=== PATIENT | male | born 1965 | race Caucasian/White ===

== ENCOUNTER 2017-06-05 07:50 | Inpatient (IN) | payer OTHER ==
[2017-05-26 14:20] LABS: BASOPHILS % (AUTO) 0.2 % (0-1); EOSINOPHILS # (AUTO) 0.2 X10'3 (0-0.9); LYMPHOCYTES # (AUTO) 1.1 X10'3 (1.1-4.8); LYMPHOCYTES % (AUTO) 15.8 % (21-51); MEAN CORPUSCULAR HEMOGLOBIN 31.3 PG (27.0-31.0); MEAN CORPUSCULAR HGB CONC 34.4 % (33.0-36.5); MEAN CORPUSCULAR VOLUME 90.9 FL (78-98); MEAN PLATELET VOLUME 8.8 FL (7.4-10.4); MONOCYTES % (AUTO) 14.1 % (2-12); NEUTROPHILS # (AUTO) 4.7 X10'3 (1.8-7.7); NEUTROPHILS % (AUTO) 66.9 % (42-75); PRE OP HEMATOCRIT 45.4 % (42.0-52.0); PRE OP HEMOGLOBIN 15.6 g/dL (14.0-17.9); PRE OP PLATELET COUNT 233 X10'3 (140-440); RED BLOOD COUNT 4.99 X10'6 (4.70-6.10); RED CELL DISTRIBUTION WIDTH 12.9 % (11.5-14.5)
[2017-05-26 14:30] LABS: PRE OP PROTIME 10.4 SECONDS (9.0-12.0)
[2017-05-26 14:36] LABS: ALBUMIN 3.5 G/DL (3.4-5.0); ALBUMIN/GLOBULIN RATIO 0.7 (1.1-1.5); ALKALINE PHOSPHATASE 41 IU/L (46-116); BLOOD UREA NITROGEN 18 MG/DL (7-18); BUN/CREATININE RATIO 16.7 (5.4-32.0); CALCIUM 9.1 MG/DL (8.5-10.1); CHLORIDE 103 MMOL/L (99-107); CREATININE 1.08 MG/DL (0.60-1.10); PRE OP ALT 69 U/L (30-65); PRE OP ANION GAP 10 (8-16); PRE OP AST 43 U/L (10-37); PRE OP BILIRUB, TOTAL 0.4 MG/DL (0.0-1.0); PRE OP GLUCOSE 112 MG/DL (70-104); PRE OP SODIUM 140 MMOL/L (135-145); TOTAL CARBON DIOXIDE 26.9 MMOL/L (24-32); TOTAL PROTEIN 8.4 G/DL (6.4-8.2); eGFR 72 ML/MIN
[2017-05-26 14:38] LABS: PRE OP POTASSIUM 3.3 MMOL/L (3.4-5.1)
[2017-06-05] VITALS (17 sets, daily range): BP systolic 97–152; BP diastolic 54–94
[~2017-06-05] VITALS: Ht 190.5 cm; Wt 125.1 kg
[~2017-06-05 07:50] MED LIST: DOCUMENT DATE & TIME OF BETA-BLOCKER PO ONE; HYDR-565 PO; LOSA50TA3 PO; METO-395 PO; PANT20TA2 PO; ceFAZolin 2gm in dextrose, iso 100 ML IV ONE; famotidine 20mg tablet PO ONE; ringers solution, lacted 1,000 ML IV SCH; vancomycin inj 1,500 MG in normal saline 300ml IV soln IV ONE
[2017-06-05] MEDS ORDERED: ringers solution, lacted 1,000 ML IV SCH (09:13)
[2017-06-05] MEDS ORDERED: morphine 4 MG/ML inj SYRINge IV PRN ×2 (09:15)
[2017-06-05] MEDS ORDERED: ondansetron/PF 4mg/2ml inj IV PRN ×2 (09:15→14:50)
[2017-06-05] MEDS ORDERED: meperidine/PF 50mg/ml syringe IV PRN ×3 (09:15)
[2017-06-05] MEDS ORDERED: proCHLORperazine 10 MG/2 ml inj IV PRN (09:15)
[2017-06-05] MEDS ORDERED: ROPIVAcaine 0.5% (5mg/ml) 30ml vial ONE (10:42)
[2017-06-05] MEDS ORDERED: ketorolac trometh. 30mg/ml inj. ONE (10:42)
[2017-06-05] MEDS ORDERED: vancomycin 1,000mg inj ONE (10:42)
[2017-06-05] MEDS ORDERED: fentaNYL/PF 50MCG/1 ML 2ML syringe ONE (11:19)
[2017-06-05] MEDS ORDERED: dexamethasone sod phosphate 4mg/ml inj. ONE (11:20)
[2017-06-05] MEDS ORDERED: MIDAZolam 5mg/5ml vial ONE (11:20)
[2017-06-05] MEDS ORDERED: sevoflurane 250ml liquid IH ONE (11:52)
[2017-06-05] MEDS ORDERED: glycopyrrolate 0.2mg/ml inj ONE (11:52)
[2017-06-05] MEDS ORDERED: neostigmine methylsulfate 1 MG/ML 10ml vial ONE (11:52)
[2017-06-05] MEDS ORDERED: rocuronium 10mg/ml inj IV ONE (12:39)
[2017-06-05] MEDS ORDERED: ondansetron/PF 4mg/2ml inj ONE (12:40)
[2017-06-05] MEDS ORDERED: acetaminophen 325mg tablet PO PRN (14:50)
[2017-06-05] MEDS ORDERED: oxyCODONE IR 5mg (immed. release) tablet PO PRN (14:50)
[2017-06-05] MEDS ORDERED: albuterol 2.5 MG/3 ML nebule NEB ONE (14:50)
[2017-06-05] MEDS ORDERED: diphenhydrAMINE 25mg capsule PO PRN ×2 (14:50)
[2017-06-05] MEDS ORDERED: magnesium hydroxide 30ml (MOM) UD suspension PO PRN (14:50)
[2017-06-05] MEDS ORDERED: HYDROmorphone inj. 0.5 MG/0.5 ML DISP.SYRIN IV PRN ×2 (14:50)
[2017-06-05] MEDS ORDERED: bisacodyl 10mg suppository rectal RC PRN (14:50)
[2017-06-05] MEDS ORDERED: albuterol 2.5 MG/3 ML nebule ONE (15:00)
[2017-06-05] MEDS ORDERED: albuterol 2.5 MG/3 ML nebule NEB PRN ×2 (15:15→17:00)
[2017-06-05] MEDS: tranexamic acid inj. 1,250 MG in normal saline 100ml IV soln 100 ML IV SCH ×2 (15:52→16:17)
[2017-06-05] MEDS: clindamycin 600mg/D5W 50ml 50 ML IV SCH ×2 (16:10→20:24)
[2017-06-05] MEDS: oxyCODONE IR 5mg (immed. release) tablet PO PRN ×2 (16:11→20:26)
[2017-06-05] MEDS: potassium cl 20mEq in 1/2 NS 1,000 ML IV SCH ×2 (16:17→20:30)
[2017-06-05] MEDS ORDERED: ketorolac trometh. 30mg/ml inj. IV ONE (18:00)
[2017-06-05] MEDS ORDERED: acetaminophen 1,000mg/100ml IV 100 ML IV ONE (18:00)
[2017-06-05] MEDS ORDERED: tranexamic acid inj. 1,250 MG in normal saline 100ml IV soln 100 ML IV ONE (18:00)
[2017-06-05] MEDS: ketorolac tromethamine 15mg/ml inj. IV SCH ×2 (20:00→20:25)
[2017-06-05] MEDS ORDERED: vancomycin/NS 1 GM ADD-VANTAGE 250 ML IV SCH (20:00)
[2017-06-05] MEDS ORDERED: celeCOXIB 100mg capsule PO SCH (20:00)
[2017-06-05] MEDS: gabapentin 300mg capsule PO SCH (20:25)
[2017-06-05] MEDS: acetaminophen 325mg tablet PO SCH (20:28)
[2017-06-05] MEDS ORDERED: sennosides 8.6mg tablet PO SCH (21:00)
[2017-06-06] MEDS: oxyCODONE IR 5mg (immed. release) tablet PO PRN ×3 (00:53→09:49)
[2017-06-06] MEDS: clindamycin 600mg/D5W 50ml 50 ML IV SCH ×2 (01:55→08:47)
[2017-06-06] MEDS: acetaminophen 325mg tablet PO SCH ×2 (01:56→08:49)
[2017-06-06] MEDS: ketorolac tromethamine 15mg/ml inj. IV SCH ×2 (01:56→08:44)
[2017-06-06 02:00] VITALS: BP 107/71
[2017-06-06 06:17] LABS: BASOPHILS % (AUTO) 0 % (0-1); EOSINOPHILS # (AUTO) 0.3 X10'3 (0-0.9); HEMATOCRIT 37.7 % (42.0-52.0); HEMOGLOBIN 13.3 g/dl (14.0-17.9); LYMPHOCYTES # (AUTO) 1.1 X10'3 (1.1-4.8); LYMPHOCYTES % (AUTO) 7.2 % (21-51); MEAN CORPUSCULAR HEMOGLOBIN 34.2 PG (27.0-31.0); MEAN CORPUSCULAR HGB CONC 35.3 % (33.0-36.5); MEAN CORPUSCULAR VOLUME 96.9 FL (78-98); MEAN PLATELET VOLUME 8.9 FL (7.4-10.4); MONOCYTES # (AUTO) 0.6 X10'3 (0-0.9); NEUTROPHILS # (AUTO) 13.6 X10'3 (1.8-7.7); NEUTROPHILS % (AUTO) 86.8 % (42-75); PLATELET COUNT 297 X10'3 (140-440); RED BLOOD COUNT 3.89 X10'6 (4.70-6.10); RED CELL DISTRIBUTION WIDTH 12.8 % (11.5-14.5); WHITE BLOOD COUNT 15.6 X10'3 (4.5-11.0)
[2017-06-06 06:38] LABS: ANION GAP 11 (8-16); CHLORIDE 102 MMOL/L (99-107); POTASSIUM 4.4 MMOL/L (3.5-5.1); SODIUM 138 MMOL/L (135-145); TOTAL CARBON DIOXIDE 24.6 MMOL/L (24-32)
[2017-06-06 07:00] VITALS: BP 134/72
[2017-06-06] MEDS ORDERED: metoprolol succinate 25mg (24-HOUR) SR. Tablet PO SCH (08:00)
[2017-06-06] MEDS ORDERED: pantoprazole 40mg Tablet.DR PO SCH (08:00)
[2017-06-06] MEDS ORDERED: losartan 50mg tablet PO SCH (08:00)
[2017-06-06] MEDS ORDERED: aspirin 325mg tablet PO SCH (08:30)
[2017-06-06] MEDS: potassium cl 20mEq in 1/2 NS 1,000 ML IV SCH (08:43)
[2017-06-06] MEDS: gabapentin 300mg capsule PO SCH (08:44)
[2017-06-06 08:56] VITALS: BP 126/74
[2017-06-06 10:00] VITALS: BP 122/69
[2017-06-06] MEDS ORDERED: OXYC-145 PO (12:10)
[2017-06-06] MEDS ORDERED: lactobacillus rhamnosus 10,000 MMU CELLS/CAPSULE PO SCH (20:00)
[2017-06-07] MEDS ORDERED: acetaminophen 325mg tablet PO PRN (14:50)
== END 2017-06-06 13:30 | disposition home or self-care (01) | DRG 483 ==
LOC: PAS IN 07:50 → EDSTATUS 11:00 → ORTHO 4S 16:02
PROVIDERS: ADMIT Orthopaedic Surgery; ATTEND Orthopaedic Surgery
PROC: 0LS30ZZ Reposition Right Upper Arm Tendon, Open Approach (ICD-10-PCS; 2017-06-05)
PROC: 3E0T3BZ Introduction of Anesthetic Agent into Peripheral Nerves and Plexi, Percutaneous Approach (ICD-10-PCS; 2017-06-05)
PROC: 0RRJ00Z Replacement of Right Shoulder Joint with Reverse Ball and Socket Synthetic Substitute, Open Approach (ICD-10-PCS; principal; 2017-06-05 11:52)
DX: M19.111 Post-traumatic osteoarthritis, right shoulder (principal); D50.0 Iron deficiency anemia secondary to blood loss (chronic); I10 Essential (primary) hypertension; M75.121 Complete rotator cuff tear or rupture of right shoulder, not specified as traumatic; K21.9 Gastro-esophageal reflux disease without esophagitis; M65.811 Other synovitis and tenosynovitis, right shoulder; Z79.899 Other long term (current) drug therapy
CPT/HCPCS: 36415; 80051; 80053; 85025; 85610; 85730; 87070; 94640; 97110; 97116; 97162; 97530; A4565; A7000; J0690; J1100; J1170; J1885; J2250; J2405; J2710; J2795; J3010; J3370; J3490; J7030; J7120

== ENCOUNTER 2017-06-23 09:58 | Inpatient (IN) | payer OTHER ==
[2017-06-23] VITALS (17 sets, daily range): BP systolic 103–137; BP diastolic 64–89
[~2017-06-23] VITALS: Ht 190.5 cm; Wt 125.0 kg
[~2017-06-23 09:58] MED LIST changes: +Cefazolin 2GM/100ML NS IVPB 100 ML IV ONE; -DOCUMENT DATE & TIME OF BETA-BLOCKER PO ONE; -HYDR-565 PO; +OXYC-145 PO; -ceFAZolin 2gm in dextrose, iso 100 ML IV ONE; -famotidine 20mg tablet PO ONE; -ringers solution, lacted 1,000 ML IV SCH; -vancomycin inj 1,500 MG in normal saline 300ml IV soln IV ONE; +vancomycin/NS 1 GM ADD-VANTAGE 250 ML X 1 DOSE IV ONE
[2017-06-23] MEDS ORDERED: tranexamic acid inj. 1,250 MG in normal saline 100ml IV soln 87.5 ML IV ONE ×4 (10:30)
[2017-06-23 12:01] LABS: BASOPHILS % (AUTO) 0.5 % (0-1); EOSINOPHILS # (AUTO) 0.4 X10'3 (0-0.9); EOSINOPHILS % (AUTO) 4.6 % (0-6); HEMATOCRIT 41.6 % (42.0-52.0); HEMOGLOBIN 14.4 g/dl (14.0-17.9); LYMPHOCYTES # (AUTO) 2.2 X10'3 (1.1-4.8); MEAN CORPUSCULAR HEMOGLOBIN 31.5 PG (27.0-31.0); MEAN CORPUSCULAR HGB CONC 34.5 % (33.0-36.5); MEAN CORPUSCULAR VOLUME 91.5 FL (78-98); MEAN PLATELET VOLUME 9.1 FL (7.4-10.4); MONOCYTES # (AUTO) 0.6 X10'3 (0-0.9); MONOCYTES % (AUTO) 7.4 % (2-12); NEUTROPHILS # (AUTO) 5.3 X10'3 (1.8-7.7); NEUTROPHILS % (AUTO) 61.5 % (42-75); PLATELET COUNT 342 X10'3 (140-440); RED BLOOD COUNT 4.55 X10'6 (4.70-6.10); RED CELL DISTRIBUTION WIDTH 12.9 % (11.5-14.5); WHITE BLOOD COUNT 8.6 X10'3 (4.5-11.0)
[2017-06-23 12:13] LABS: ALANINE AMINOTRANSFERASE 37 U/L (12-78); ALBUMIN/GLOBULIN RATIO 0.6 (1.1-1.5); ALKALINE PHOSPHATASE 59 IU/L (46-116); ANION GAP 8 (8-16); ASPARTATE AMINO TRANSFERASE 24 U/L (10-37); BILIRUBIN,TOTAL 0.4 MG/DL (0.1-1.0); BLOOD UREA NITROGEN 17 MG/DL (7-18); BUN/CREATININE RATIO 16.8 (5.4-32.0); CHLORIDE 104 MMOL/L (99-107); CREATININE 1.01 MG/DL (0.60-1.10); GLUCOSE 96 MG/DL (70-104); POTASSIUM 4.1 MMOL/L (3.5-5.1); SODIUM 142 MMOL/L (135-145); TOTAL CARBON DIOXIDE 30.1 MMOL/L (24-32); TOTAL PROTEIN 7.7 G/DL (6.4-8.2); eGFR 78 ML/MIN
[2017-06-23] MEDS ORDERED: LIDOcaine 2% (20mg/ml) 5ml vial ONE (13:12)
[2017-06-23] MEDS ORDERED: ketorolac trometh. 30mg/ml inj. ONE (14:11)
[2017-06-23] MEDS ORDERED: ROPIVAcaine 0.5% (5mg/ml) 30ml vial ONE (14:11)
[2017-06-23] MEDS ORDERED: sevoflurane 250ml liquid IH ONE ×2 (14:28)
[2017-06-23] MEDS ORDERED: dexamethasone sod phosphate 4mg/ml inj. ONE (14:28)
[2017-06-23] MEDS ORDERED: midazolam 2 mg/2 ml injection ONE (14:33)
[2017-06-23] MEDS ORDERED: vancomycin 1,000mg inj ONE (14:39)
[2017-06-23] MEDS ORDERED: ondansetron/PF 4mg/2ml inj ONE (15:01)
[2017-06-23] MEDS ORDERED: fentaNYL /PF 50mcg/ml 5ml ampule ONE (15:01)
[2017-06-23] MEDS ORDERED: ringers solution, lacted 1,000 ML IV SCH (15:28)
[2017-06-23] MEDS ORDERED: ondansetron/PF 4mg/2ml inj IV PRN ×2 (15:30→16:40)
[2017-06-23] MEDS ORDERED: hydrALAZINE 20mg/ml inj. IV PRN (15:30)
[2017-06-23] MEDS ORDERED: enalaprilat dihydrate 2.5mg/2ml vial IV PRN (15:30)
[2017-06-23] MEDS ORDERED: morphine 4 MG/ML inj SYRINge IV PRN ×2 (15:30)
[2017-06-23] MEDS ORDERED: fentaNYL/PF 50MCG/1 ML 2ML syringe IV PRN ×2 (15:30)
[2017-06-23] MEDS ORDERED: magnesium hydroxide 30ml (MOM) UD suspension PO PRN (16:40)
[2017-06-23] MEDS ORDERED: diphenhydrAMINE 25mg capsule PO PRN ×2 (16:40)
[2017-06-23] MEDS ORDERED: HYDROmorphone inj. 0.5 MG/0.5 ML DISP.SYRIN IV PRN ×2 (16:40)
[2017-06-23] MEDS ORDERED: acetaminophen 325mg tablet PO PRN (16:40)
[2017-06-23] MEDS ORDERED: bisacodyl 10mg suppository rectal RC PRN (16:40)
[2017-06-23] MEDS ORDERED: oxyCODONE IR 5mg (immed. release) tablet PO PRN (16:40)
[2017-06-23] MEDS ORDERED: clindamycin 600mg/D5W 50ml 50 ML IV ONE (16:45)
[2017-06-23] MEDS: oxyCODONE IR 5mg (immed. release) tablet PO PRN (17:44)
[2017-06-23] MEDS: potassium cl 20mEq in 1/2 NS 1,000 ML IV SCH (17:44)
[2017-06-23] MEDS ORDERED: vancomycin/NS 1 GM ADD-VANTAGE 250 ML IV SCH (20:00)
[2017-06-23] MEDS ORDERED: tranexamic acid inj. 1,250 MG in normal saline 100ml IV soln 100 ML IV ONE (20:00)
[2017-06-23] MEDS ORDERED: sennosides 8.6mg tablet PO SCH (21:00)
[2017-06-23] MEDS: acetaminophen 325mg tablet PO SCH (21:16)
[2017-06-23] MEDS: gabapentin 300mg capsule PO SCH (21:17)
[2017-06-23] MEDS: ketorolac tromethamine 15mg/ml inj. IV SCH (21:17)
[2017-06-24] MEDS ORDERED: ceFAZolin 1GM/D5W- ADD-VANTAGE 50 ML IV SCH
[2017-06-24] MEDS: oxyCODONE IR 5mg (immed. release) tablet PO PRN ×4 (00:39→12:11)
[2017-06-24] MEDS: potassium cl 20mEq in 1/2 NS 1,000 ML IV SCH ×2 (00:46→08:38)
[2017-06-24 02:02] VITALS: BP 124/76
[2017-06-24] MEDS: ketorolac tromethamine 15mg/ml inj. IV SCH ×3 (02:50→13:18)
[2017-06-24] MEDS: acetaminophen 325mg tablet PO SCH ×3 (02:50→13:18)
[2017-06-24 05:43] LABS: BASOPHILS % (AUTO) 0 % (0-1); EOSINOPHILS # (AUTO) 0.1 X10'3 (0-0.9); EOSINOPHILS % (AUTO) 1.3 % (0-6); HEMATOCRIT 37.1 % (42.0-52.0); HEMOGLOBIN 12.7 g/dl (14.0-17.9); LYMPHOCYTES # (AUTO) 0.8 X10'3 (1.1-4.8); LYMPHOCYTES % (AUTO) 8.8 % (21-51); MEAN CORPUSCULAR HEMOGLOBIN 31.7 PG (27.0-31.0); MEAN CORPUSCULAR HGB CONC 34.2 % (33.0-36.5); MEAN CORPUSCULAR VOLUME 92.7 FL (78-98); MEAN PLATELET VOLUME 9.1 FL (7.4-10.4); MONOCYTES # (AUTO) 0.3 X10'3 (0-0.9); MONOCYTES % (AUTO) 2.8 % (2-12); NEUTROPHILS # (AUTO) 8.2 X10'3 (1.8-7.7); NEUTROPHILS % (AUTO) 87.1 % (42-75); PLATELET COUNT 306 X10'3 (140-440); RED BLOOD COUNT 4.01 X10'6 (4.70-6.10); RED CELL DISTRIBUTION WIDTH 12.9 % (11.5-14.5); WHITE BLOOD COUNT 9.5 X10'3 (4.5-11.0)
[2017-06-24 06:00] VITALS: BP 107/62
[2017-06-24 06:06] LABS: ANION GAP 8 (8-16); CHLORIDE 103 MMOL/L (99-107); POTASSIUM 4.3 MMOL/L (3.5-5.1); SODIUM 137 MMOL/L (135-145); TOTAL CARBON DIOXIDE 25.7 MMOL/L (24-32)
[2017-06-24] MEDS ORDERED: pantoprazole 40mg Tablet.DR PO SCH (07:30)
[2017-06-24] MEDS ORDERED: metoprolol succinate 25mg (24-HOUR) SR. Tablet PO SCH (08:00)
[2017-06-24] MEDS ORDERED: losartan 50mg tablet PO SCH (08:00)
[2017-06-24] MEDS ORDERED: aspirin 325mg tablet PO SCH (08:30)
[2017-06-24] MEDS: gabapentin 300mg capsule PO SCH ×2 (08:41→13:17)
[2017-06-24] MEDS ORDERED: ASPI-1 PO (09:32)
[2017-06-24] MEDS ORDERED: famotidine 20mg tablet PO ONE (09:40)
[2017-06-24] MEDS ORDERED: ringers solution, lacted 1,000 ML IV SCH (09:40)
[2017-06-24 11:07] VITALS: BP 117/73
[2017-06-24] MEDS ORDERED: celeCOXIB 100mg capsule PO SCH (20:00)
[2017-06-25] MEDS ORDERED: acetaminophen 325mg tablet PO PRN (16:40)
== END 2017-06-24 14:49 | disposition home or self-care (01) | DRG 483 ==
LOC: PAS IN 09:58 → EDSTATUS 14:00 → ORTHO 4S 17:29
PROVIDERS: ADMIT Orthopaedic Surgery; ATTEND Orthopaedic Surgery
PROC: 0RRJ0J7 Replacement of Right Shoulder Joint with Synthetic Substitute, Glenoid Surface, Open Approach (ICD-10-PCS; 2017-06-23)
PROC: 0RPJ0JZ Removal of Synthetic Substitute from Right Shoulder Joint, Open Approach (ICD-10-PCS; 2017-06-23)
PROC: 3E0T3BZ Introduction of Anesthetic Agent into Peripheral Nerves and Plexi, Percutaneous Approach (ICD-10-PCS; principal; 2017-06-23 14:33)
DX: T84.028A Dislocation of other internal joint prosthesis, initial encounter (principal); D62 Acute posthemorrhagic anemia; M75.121 Complete rotator cuff tear or rupture of right shoulder, not specified as traumatic; I10 Essential (primary) hypertension; K21.9 Gastro-esophageal reflux disease without esophagitis; E66.9 Obesity, unspecified; Y83.1 Surgical operation with implant of artificial internal device as the cause of abnormal reaction of the patient, or of later complication, without mention of misadventure at the time of the procedure; Y92.89 Other specified places as the place of occurrence of the external cause; Z79.899 Other long term (current) drug therapy; Z68.34 Body mass index [BMI] 34.0-34.9, adult
CPT/HCPCS: 36415; 80051; 80053; 85025; 87070; 87075; 87176; 97110; 97116; 97162; 97530; A6255; J0690; J1100; J1885; J2001; J2250; J2405; J2795; J3010; J3370; J3490; J7030; J7120